=== PATIENT | female | born 1985 | race Caucasian/White ===

== ENCOUNTER → 2019-04-12 | Outpatient (CLI) | payer BC | END | disposition home or self-care (01) | LOC: LABWHC1 16:33 | PROVIDERS: ATTEND Obstetrics & Gynecology | DX: N97.8 Female infertility of other origin (principal) | CPT/HCPCS: 36415; 84144 ==

== ENCOUNTER → 2019-05-06 | Outpatient (CLI) | payer BC | END | disposition home or self-care (01) | LOC: LABWHC1 07:05 | PROVIDERS: ATTEND Obstetrics & Gynecology | DX: N97.8 Female infertility of other origin (principal) | CPT/HCPCS: 36415; 82670; 84144 ==

== ENCOUNTER → 2021-04-27 | Outpatient (CLI) | payer BC ==
--- NOTE | 2021-04-27 09:45 | CT ---
EXAMINATION TYPE: CT sinus wo con DATE OF EXAM: 04/27/2021 COMPARISON: None HISTORY: Chronic sinusitis CT DLP: 622.3 mGycm. Automated Exposure Control for Dose Reduction was Utilized. TECHNIQUE: CT scan of the sinuses is performed without contrast, axial images are obtained, coronal r eformatted images are also reviewed. FINDINGS: The paranasal sinuses demonstrate moderate mucosal thickening involving the sphenoid sinus with moderate to severe changes involving the ethmoid, frontal and maxillary sinusitis with occlusio n of the bilateral ostiomeatal complex. No air-fluid levels. Osseous structures intact. Orbits are symmetric. Visualized portion of mastoid air cells show no abno rmal opacification. The globes are intact bilaterally. Nasal septal deviation noted. IMPRESSION: Moderate to severe chronic pansinusitis.
== END | disposition home or self-care (01) ==
LOC: RADCTMAIN 09:00
PROVIDERS: ATTEND Otolaryngology
DX: J32.4 Chronic pansinusitis (principal)
CPT/HCPCS: 70486

== ENCOUNTER → 2022-04-04 | Outpatient (CLI) | payer BC ==
--- NOTE | 2022-04-04 12:10 | US ---
EXAMINATION TYPE: US pelvic complete DATE OF EXAM: 04/04/2022 COMPARISON: NONE CLINICAL HISTORY: R10.2 PELVIC PAIN. Left pelvic pain. History of endometriosis TECHNIQUE: . Transabdominal sonographic images of the pelvis were acquired. Date of LMP: Unknown due to IUD EXAM MEASUREMENTS: Uterus: 9.3 x 4.1 x 5.3 cm Endometrial Stripe: 0.43 cm Right Ovary: 2.9 x 2.4 x 2.5 cm Left Ovary: 3.7 x 2.5 x 4.1 cm 1. Uterus: Anteverted wnl 2. Endometrium: wnl. IUD visualized appropriately 3. Right Ovary: Follicle measuring up to 1.9cm 4. Left Ovary: Anechoic lesion with increased through transmission compatible with a cyst measuring 3.4 x 2.5 x 3.3cm which is within physiologic size range and considered benign 5. Bilateral Adnexa: wnl 6. Posterior cul-de-sac: wnl IMPRESSION: Left ovarian cyst measuring 3.4 cm in greatest dimension is within physiologic size range and considered benign. Presence of an IUD. Otherwise unremarkable pelvic ultrasound.
== END | disposition home or self-care (01) ==
LOC: RADUSWWP 09:34
PROVIDERS: ATTEND Obstetrics & Gynecology
DX: N83.202 Unspecified ovarian cyst, left side (principal); Z97.5 Presence of (intrauterine) contraceptive device
CPT/HCPCS: 76856

== ENCOUNTER → 2023-06-10 | Outpatient (CLI) | payer BC ==
[2023-06-11 00:04] LABS: ALT 13 U/L (8-44); AST 20 U/L (13-35); Albumin 4.5 g/dL (3.8-4.9); Albumin/Globulin Ratio 2.14 Ratio (1.60-3.17); Alkaline Phosphatase 58 U/L (41-126); Amylase 171 U/L (23-121); Bilirubin, Conjugated <0.20 mg/dL (0.20-0.40); Bilirubin,Unconjugated >0 mg/dL (0.20-1.00); Globulin 2.1 g/dL (1.6-3.3); Lipase 110 U/L (14-63); Total Bilirubin 0.2 mg/dL (0.3-1.2); Total Protein 6.6 g/dL (6.2-8.2)
== END | disposition home or self-care (01) ==
LOC: LABWHC1 14:12
PROVIDERS: ATTEND Internal Medicine Gastroenterology
DX: E84.9 Cystic fibrosis, unspecified (principal); K30 Functional dyspepsia; R74.8 Abnormal levels of other serum enzymes
CPT/HCPCS: 36415; 80076; 82150; 82787; 83690